=== PATIENT | female | born 1975 | race Asian ===

== ENCOUNTER 2021-10-31 23:52 | Emergency (ER) | payer OTHER ==
[~2021-10-31] VITALS: Ht 170.2 cm; Wt 152.9 kg
[2021-11-01 01:08] VITALS: BP 155/80; TEMP 98.9
== END 2021-11-01 01:32 | disposition home or self-care (01) ==
LOC: ED 23:52
DX: J06.9 Acute upper respiratory infection, unspecified (principal); U07.1 COVID-19
CPT/HCPCS: 36415; 87502; 87635; 87651; 99283; U0003